=== PATIENT | female | born 1935 | race Caucasian/White ===

== ENCOUNTER 2020-11-09 09:15 | Emergency (ER) | payer MEDICARE ==
[~2020-11-09] VITALS: Ht 162.6 cm; Wt 44.6 kg
--- NOTE | 2020-11-09 09:51 | NUR ---
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
--- NOTE | 2020-11-09 10:00 | NUR ---
Pt in room with tech placing her in gown and on monitor. Introduced myself and notified pt I will return in few minutes.
--- NOTE | 2020-11-09 10:20 | NUR ---
Pt assessment completed including NIH assessment-found to be negative. airplane technician at bedside for draw at this time.
[2020-11-09] MEDS ORDERED: MECLIZINE CHEWABLE 25 MG TAB ONE (10:29)
[2020-11-09] MEDS ORDERED: MECLIZINE CHEWABLE 25 MG TAB PO ONE (10:30)
--- NOTE | 2020-11-09 10:32 | NUR ---
Swallow evaluation completed and passed and PO medication given as ordered for vertigo.
[2020-11-09 10:44] LABS: BASOPHILS % (AUTO) 1 % (0-1); EOSINOPHILS % (AUTO) 2 % (1-7); LYMPHOCYTES % (AUTO) 24 % (22-44); MEAN CORPUSCULAR HEMOGLOBIN 31.7 pg (27.0-34.8); MEAN CORPUSCULAR HGB CONC 33.5 g/dL (32.4-35.8); MEAN PLATELET VOLUME 8.8 fL (7.4-10.4); MONOCYTES % (AUTO) 9 % (2-9); NEUTROPHILS % (AUTO) 63 % (42-75); PLATELET COUNT 223 x10^3/uL (130-400); RED BLOOD COUNT 4.21 x10^6/uL (3.82-5.3); RED CELL DISTRIBUTION WIDTH 13.6 % (9.6-15.2)
[2020-11-09 10:46] LABS: MD NO
[2020-11-09 10:50] LABS: ALBUMIN 3.9 g/dL (3.4-5.0); ANION GAP 4 mmol/L (5-15); CALCIUM 8.8 mg/dL (8.5-10.1); CHLORIDE 108 mmol/L (98-107); CREATININE 1.02 mg/dL (0.55-1.02)
--- NOTE | 2020-11-09 10:50 | NUR ---
Pt taken to CT at this time by tea.
[2020-11-09] MEDS ORDERED: ASPI-963 PO (10:57)
[2020-11-09] MEDS ORDERED: prevachol PO (10:57)
--- NOTE | 2020-11-09 10:59 | NUR ---
Pt back to room and placed on personnel monitor.
--- NOTE | 2020-11-09 11:20 | NUR ---
All results reviewed and chart marked for recheck by MD at this time.
--- NOTE | 2020-11-09 11:22 | NUR ---
Reassessment after Meclizine admin shows no change in dizziness upon sitting and dangling at bedside. VS reassessed without acute change noted there either.
--- NOTE | 2020-11-09 11:48 | NUR ---
MD arrived at bedside for reassessment and discussion of findings/ plan of care.
[2020-11-09 12:33] VITALS: BP 153/84
== END 2020-11-09 12:35 | disposition home or self-care (01) ==
LOC: ED 11:14
DX: R42 Dizziness and giddiness (principal); I49.1 Atrial premature depolarization; R51.9 Headache, unspecified
CPT/HCPCS: 36415; 70450; 80048; 82040; 85025; 93005; 99285